=== PATIENT | female | born 1970 | race Caucasian/White ===

== ENCOUNTER 2016-11-27 19:10 | Emergency (ER) | payer OTHER ==
[~2016-11-27] VITALS: Ht 170.2 cm; Wt 93.0 kg
--- NOTE | 2016-11-27 20:07 | ED UPPER/LOWER EXTREMITY COMPL ---
History of Present Illness General Chief Complaint: Lower Extremity Problems Stated Complaint: RIGHT LEG PAIN, NO KNOWN INJURY PER PT Source: patient Exam Limitations: no limitations Vital Signs & Intake/Output Vital Signs & Intake/Output Vital Signs Date Time Temp Pulse Resp B/P Pulse O2 O2 Flow FiO2 Ox Delivery Rate 11/27 1938 97.6 88 18 165/92 97 Room Air Allergies Coded Allergies: NO KNOWN ALLERGIES (11/27/16) Reconcile Medications Ibuprofen 800 MG TABLET 1 TAB PO TID PRN PAIN Methylprednisolone. (Medrol) 4 MG TAB.DS.PK 1 DP PO AD INFLAMMATION 6 on day 1 then reduce by one tablet daily until gone Triage Note: PT TO ER C/O RIGHT UPPER LEG PAIN /. PT STATES THIS HAS BEEN ON AND OFF FOR 6 MONTHS. PER PT TODAY WAS THE WORST. Triage Nurses Notes Reviewed? yes Onset: Gradual Duration: worse persistent since (TODAY WHILE AT WORK), FEW MONTHS Timing: single episode today Severity: moderate, severe Pain/Injury Location: Right: Thigh. Method of Injury: NONE Associated Symptoms: PAIN/CRAMPING HPI: 46-year-old female history of colon cancer status post partial colectomy also history of previous femur fracture at the age of 7 years since the chief complaint of on and off right thigh pain for the past 6 months. Today while standing at work pain got much more intense. She denies any recent trauma. Denies any swelling. Pain is in the lateral thigh Past History Travel History Traveled to [place] past 21 day No Medical History Any Pertinent Medical History? see below for history Cancer(s): colon/rectal cancer Surgical History Surgical History: colon resection (PARTIAL) Psychosocial History What is your primary language Khmer Tobacco Use: Never used Family History Hx Contributory? No Review of Systems Review of Systems Constitutional: Denies: chills, fever. EENTM: Reports: no symptoms. Respiratory: Denies: cough, short of breath, sputum production. Cardiovascular: Denies: chest pain, palpitations. Gastrointestinal/Abdominal: Denies: abdominal pain. Genitourinary: Reports: no symptoms. Musculoskeletal: Reports: joint pain, muscle pain, muscle stiffness. Denies: back pain, neck pain. Skin: Reports: no symptoms. Neurological/Psychological: Reports: no symptoms. Hematologic/Endocrine: Denies: bruising, bleeding, polyuria, polydipsia. Immunological: Denies: splenectomy. All Other Systems: Reviewed and Negative Physical Exam Physical Exam General Appearance: well developed/nourished, mild distress Head: atraumatic Eyes: Bilateral: PERRL, EOMI. Ears, Nose, Throat: normal pharynx, normal ENT inspection, hearing grossly normal Neck: normal inspection, supple Cardiovascular/Respiratory: regular rate/rhythm Peripheral Pulses: 2+ radial (R), 2+ radial (L) Back: normal inspection Leg Left: normal range of motion, normal inspection Leg Right: normal range of motion, normal inspection Hip Left: normal range of motion, normal inspection Hip Right: normal range of motion, normal inspection Knee Left: normal range of motion, normal inspection Knee Right: normal range of motion, normal inspection Foot Left: normal inspection, normal range of motion Foot Right: normal inspection, normal range of motion Neurologic/Tendon: normal sensation, normal motor functions, normal tendon functions Skin: intact, normal color, warm/dry Lymphatic: no anterior cervical elias Diagram Legs Front/Back 1) TENDER TO PALPATION NO ERYTHEMA, NO ECCHYMOSIS NO SWELLING Progress Differential Diagnosis: DVT, fracture, sprain, MUSCLE SPASM Plan of Care: Orders Procedure Date/time Status MAGNESIUM 11/27 2013 Complete COMPREHENSIVE METABOLIC PANEL 11/27 2013 Complete CBC WITHOUT DIFFERENTIAL 11/27 2013 Complete Laboratory Tests 11/27/162022: Anion Gap 13, Estimated GFR > 60, BUN/Creatinine Ratio 13.8, Glucose 100 H, Calcium 10.1, Magnesium 1.7, Total Bilirubin 0.6, AST 22, ALT 34, Alkaline Phosphatase 91, Total Protein 8.4 H, Albumin 4.9, Globulin 3.5, Albumin/ Globulin Ratio 1.4, CBC w Diff NO MAN DIFF REQ, RBC 4.68, MCV 83.6, MCH 27.9, RDW 12.9, MPV 6.9 L, Gran % 73.3, Lymphocytes % 19.9 L, Monocytes % 5.2, Eosinophils % 1.3, Basophils % 0.3, Absolute Granulocytes 6.5, Absolute Lymphocytes 1.8, Absolute Monocytes 0.5, Absolute Eosinophils 0.1, Absolute Basophils 0, PUBS MCHC 33.3 Diagnostic Imaging: Viewed by Me: Radiology Read, Ultrasound. Discussed w/RAD: Radiology Read, Ultrasound. Radiology Impression: PATIENT: DELVIN SUNG PRESENT AGE: 46 PATIENT ACCOUNT NO: [id number] : 70 LOCATION: [facility] ORDERING PHYSICIAN: QUYEN PENALOZA MD SERVICE DATE: 11/27/16 EXAM TYPE: US - US- UNILATERAL VENOUS DOPPLER EXAMINATION: US TRIPLEX LOWER EXTREMITY, RIGHT CLINICAL INFORMATION: Pelvic pain. Lateral swelling. DVT. COMPARISON: None TECHNIQUE: Color-flow triplex imaging with spectral analysis and compression Doppler were performed on the right lower extremity. Examination is slightly limited due to patient's limited mobility and due to body habitus. There is difficulty accessing the right popliteal fossa, per the technologist. FINDINGS: Respiratory variation, normal compression and augmented flow are noted throughout the lower extremity. The visualized common femoral vein, superficial femoral vein, profunda femoral vein, popliteal vein and midcalf peroneal and posterior tibial venous segments show no evidence of deep venous thrombosis. There is no Dumont's cyst. IMPRESSION: Normal triplex scan without evidence of deep venous thrombosis involving the right lower extremity. DICTATED BY: MATEO LEON MD DATE/TIME DICTATED:11/27/162053 PLASTICS AND COMPOSITES INSPECTOR:SHEEBA DATE/TIME TRANSCRIBED:11/27/162053 CONFIDENTIAL, DO NOT COPY WITHOUT APPROPRIATE AUTHORIZATION. <Electronically signed in Other Vendor System> SIGNED BY: MATEO LEON MD 11/27/162058, PATIENT: DELVIN SUNG PRESENT AGE: 46 PATIENT ACCOUNT NO: [id number] : 70 LOCATION: [facility] ORDERING PHYSICIAN: QUYEN PENALOZA MD SERVICE DATE: 11/27/16 EXAM TYPE: RAD - XRY-FEMUR, 2 VIEWS RIGHT EXAMINATION: XR FEMUR, RIGHT CLINICAL INFORMATION : Severe right lateral thigh pain. No trauma. Rule out bony abnormality. COMPARISON: None TECHNIQUE: AP and lateral views of the right femur were obtained. FINDINGS: Right femur is intact. No fracture or malalignment. Bone island is present at the femoral neck. Right hip joint is normal. Imaged portion of the right knee is unremarkable. Bone mineralization appears normal. There is a subtle 2.3 cm calcification overlying the lateral margin of the proximal femoral shaft at the level of the lesser trochanter which is of uncertain etiology. Mild soft tissue swelling is present in the lateral subcutaneous fat. IMPRESSION: 1. No acute osseous findings. 2. Ill-defined 2 cm calcification at the proximal femoral shaft laterally which could represent developing ossification from prior injury. Calcific tendinitis is more likely. DICTATED BY: MATEO LEON MD DATE/TIME DICTATED:11/27/162111 PLASTICS AND COMPOSITES INSPECTOR:SHEEBA DATE/TIME TRANSCRIBED:11/27/162111 CONFIDENTIAL, DO NOT COPY WITHOUT APPROPRIATE AUTHORIZATION. <Electronically signed in Other Vendor System> SIGNED BY: MATEO LEON MD 11/27/162120 Departure Departure Time of Disposition: 2122 Disposition: HOME OR SELF CARE Condition: Stable Clinical Impression Primary Impression: Right leg pain Referrals: MILTON MARSHALL MD (PCP/Family) Additional Instructions: FOLLOW UP WITH YOUR DOCTOR IN THE OFFICE FOR FURTHER WORKUP OF YOUR RIGHT LEG PAIN. YOU MAY NEED IMAGING OF YOUR SPINE. RETURN TO THE ER FOR ANY WEAKNESS, NUMBNESS, TINGLING. Departure Forms: Customer Survey General Discharge Information Prescriptions: Current Visit Scripts Ibuprofen 1 TAB PO TID PRN PAIN #20 TAB Methylprednisolone. (Medrol) 1 DP PO AD #1 DP 6 on day 1 then reduce by one tablet daily until gone
[2016-11-27 20:36] LABS: ABSOLUTE BASOPHIL COUNT 0 /CUMM (0.0-0.2); ABSOLUTE EOSINOPHIL COUNT 0.1 /CUMM (0.0-0.7); ABSOLUTE GRANULOCYTE CT 6.5 /CUMM (1.4-6.5); ABSOLUTE LYMPH COUNT 1.8 /CUMM (1.2-3.4); ABSOLUTE MONOCYTE COUNT 0.5 /CUMM (0.10-0.60); BASOPHIL % 0.3 % (0.0-2.0); EOSINOPHIL % 1.3 % (0-5); GRANULOCYTE % 73.3 % (42.2-75.2); HEMATOCRIT 39.1 % (37-47); MEAN CORPUSCULAR HGB 27.9 PG (27.0-31.0); MEAN CORPUSCULAR HGB CONC 33.3 G/DL (33.0-37.0); MEAN CORPUSCULAR VOLUME 83.6 FL (81.0-99.0); MEAN PLATELET VOLUME 6.9 FL (7.4-10.4); PLATELET COUNT 269 /CUMM (130-400); RBC DISTRIBUTION WIDTH 12.9 % (11.5-14.5); RED BLOOD CELL CT 4.68 /CUMM (4.20-5.40); WHITE BLOOD CELL COUNT 8.9 /CUMM (4.8-10.8)
--- NOTE | 2016-11-27 20:59 | ULTRASOUND REPORT ---
EXAMINATION: US TRIPLEX LOWER EXTREMITY, RIGHT CLINICAL INFORMATION: Pelvic pain. Lateral swelling. DVT. COMPARISON: None TECHNIQUE: Color-flow triplex imaging with spectral analysis and compression Doppler were performed on the right lower extremity. Examination is slightly limited due to patient's limited mobility and due to body habitus. There is difficulty accessing the right popliteal fossa, per the technologist. FINDINGS: Respiratory variation, normal compression and augmented flow are noted throughout the lower extremity. The visualized common femoral vein, superficial femoral vein, profunda femoral vein, popliteal vein and midcalf peroneal and posterior tibial venous segments show no evidence of deep venous thrombosis. There is no Dumont's cyst. IMPRESSION: Normal triplex scan without evidence of deep venous thrombosis involving the right lower extremity.
--- NOTE | 2016-11-27 21:21 | RADIOLOGY REPORT ---
EXAMINATION: XR FEMUR, RIGHT CLINICAL INFORMATION: Severe right lateral thigh pain. No trauma. Rule out bony abnormality. COMPARISON: None TECHNIQUE: AP and lateral views of the right femur were obtained. FINDINGS: Right femur is intact. No fracture or malalignment. Bone island is present at the femoral neck. Right hip joint is normal. Imaged portion of the right knee is unremarkable. Bone mineralization appears normal. There is a subtle 2.3 cm calcification overlying the lateral margin of the proximal femoral shaft at the level of the lesser trochanter which is of uncertain etiology. Mild soft tissue swelling is present in the lateral subcutaneous fat. IMPRESSION: 1. No acute osseous findings. 2. Ill-defined 2 cm calcification at the proximal femoral shaft laterally which could represent developing ossification from prior injury. Calcific tendinitis is more likely.
[2016-11-27] MEDS ORDERED: IBUPROFEN800 M1 PO (21:24)
[2016-11-27 21:31] VITALS: BP 122/68
[2016-11-27] MEDS ORDERED: MEDROL4 M2 PO (21:33)
== END 2016-11-27 21:35 ==
LOC: ERH 19:10
PROVIDERS: Emergency Medicine
DX: M79.604 Pain in right leg (principal)
CPT/HCPCS: 73552; 96372; J1885